=== PATIENT | male | born 1965 | race Caucasian/White ===

== ENCOUNTER 2016-09-27 06:39 | Outpatient (CLI) | payer BC | END 2016-09-27 06:40 | DX: R10.9 Unspecified abdominal pain (principal); Z82.49 Family history of ischemic heart disease and other diseases of the circulatory system; Z12.5 Encounter for screening for malignant neoplasm of prostate; R21 Rash and other nonspecific skin eruption; R31.9 Hematuria, unspecified ==

== ENCOUNTER 2016-10-09 10:54 | Emergency (ER) | payer BC | END 2016-10-09 14:52 | disposition home or self-care (01) | DX: D49.511 Neoplasm of unspecified behavior of right kidney (principal); N12 Tubulo-interstitial nephritis, not specified as acute or chronic ==

== ENCOUNTER 2017-01-18 11:15 | Outpatient (CLI) | payer BC ==
[2017-01-18 15:06] LABS: ALBUMIN/GLOBULIN RATIO 0.7 (1.0-2.2); BILIRUBIN,TOTAL 0.7 mg/dL (0.2-1.0); CALCIUM 7.8 mg/dL (8.5-10.3); CREATININE 1.1 mg/dL (0.6-1.2); MAGNESIUM 1.8 mg/dL (1.7-2.8); PHOSPHORUS 3.9 mg/dL (2.5-4.6); POTASSIUM 4.2 mmol/L (3.5-5.0); TOTAL PROTEIN 5.8 g/dL (6.7-8.2)
== END 2017-01-18 11:16 | disposition home or self-care (01) ==
LOC: LAB.R 11:15
PROVIDERS: ATTEND Family Medicine
DX: C64.9 Malignant neoplasm of unspecified kidney, except renal pelvis (principal)
CPT/HCPCS: 80053; 83735; 84100